=== PATIENT | female | born 1970 | race Caucasian/White ===

== ENCOUNTER 2018-12-08 07:43 | Emergency (ER) | payer BC ==
[~2018-12-08] VITALS: Ht 162.6 cm; Wt 68.5 kg
[~2018-12-08 07:43] MED LIST: LEVO0.1218 PO
[2018-12-08 07:48] VITALS: BP 114/71
--- NOTE | 2018-12-08 07:52 | NUR ---
PT AMBULATED TO BED 4
--- NOTE | 2018-12-08 07:58 | NUR ---
PATIENT PRESENTS TO ED NEED FEEDING TUBE REMOVABLE DUE TO EMERGENCY NEED TO TRAVEL [place] OF [place] TODAY, PT HAD BYPASS SURGERY ON 11/17 AND HAD FEEDING TUBE PLACED ON RLQ WITH STICHES. PT IS ABLE TO EAT, NOT USING THE FEEDING TUBE, SCHEDULED TO REMOVE NEXT WEEK, REFERRED FROM PCP. DENIES PAIN, VSS; PATIENT POSITIONED FOR COMFORT; HOB ELEVATED; BEDRAILS UP X2; BED DOWN. ER MD MADE AWARE OF PT STATUS.
--- NOTE | 2018-12-08 08:32 | NUR ---
Patient being evaluated by physician at bedside.
--- NOTE | 2018-12-08 09:50 | NUR ---
PEG TUBE REMOVED AT BEDSIDE BY DR. SCHROEDER. PT TOLERATED WELL.
[2018-12-08 09:55] VITALS: BP 114/71
--- NOTE | 2018-12-08 09:55 | NUR ---
Patient discharged with v/s stable. Written and verbal after care instructions given and explained. Patient verbalized understanding.
== END 2018-12-08 09:55 | disposition home or self-care (01) ==
LOC: MED 07:43
DX: Z43.1 Encounter for attention to gastrostomy (principal); Z98.84 Bariatric surgery status; E03.9 Hypothyroidism, unspecified; Z90.710 Acquired absence of both cervix and uterus; Z79.899 Other long term (current) drug therapy
CPT/HCPCS: 99281

== ENCOUNTER 2022-04-09 13:50 | Emergency (ER) | payer BC, MEDICAID ==
[~2022-04-09] VITALS: Ht 165.1 cm; Wt 65.3 kg
[~2022-04-09 13:50] MED LIST changes: -LEVO0.1218 PO; +LEVO0.1219 PO
[2022-04-09 14:15] VITALS: BP 100/66
--- NOTE | 2022-04-09 14:27 | NUR ---
BIB SELF C/O 10 LOWER BACK PAIN X 1 WEEK. DENIES DYSURIA. SEEN AT [facility] 6 DAYS AGO SAME S/S. PMH: CHRONIC BACK PAIN , HYSTERECTOMY, GASTRIC SLEEVE SURGERY
[2022-04-09 14:59] VITALS: BP 100/66
--- NOTE | 2022-04-09 14:59 | NUR ---
PATIENT LEFT WITHOUT BEING SEEN BY VIKAS FLORES. NO FURTHER CARE PROVIDED FOR PATIENT.
== END 2022-04-09 14:55 | disposition left against medical advice (07) ==
LOC: MED 13:50
DX: M54.50 Low back pain, unspecified (principal); Z53.21 Procedure and treatment not carried out due to patient leaving prior to being seen by health care provider
CPT/HCPCS: 81002; 81025; 99282

== ENCOUNTER 2022-04-29 00:35 | Emergency (ER) | payer MEDICAID ==
[~2022-04-29] VITALS: Ht 165.1 cm; Wt 65.8 kg
[2022-04-29 00:49] VITALS: BP 112/70
--- NOTE | 2022-04-29 00:55 | NUR ---
PT WHEELCHAIR TO ED 2, PT PLACED IN [employer], PT C/O CP THAT RADIATES TO BACK, CP X FEW HOURS. PT HAS HX- CHRONIC BACK PAIN.
--- NOTE | 2022-04-29 00:59 | NUR ---
PATIENT W/C TO BED 2
[2022-04-29] MEDS ORDERED: ASPIRIN 325 MG TAB PO ONE (01:05)
[2022-04-29 01:28] LABS: BASOPHILS % (AUTO) 0.5 % (0.0-2.0); EOSINOPHILS % (AUTO) 0.8 % (0.0-4.0); HEMATOCRIT 35.7 % (36-48); HEMOGLOBIN 11.8 g/dL (12.0-16.0); LYMPHOCYTES # (AUTO) 0.9 K/uL (2.5-16.5); MEAN CORPUSCULAR HEMOGLOBIN 29 pg (27-31); MEAN CORPUSCULAR HGB CONC 33 g/dL (33-37); MEAN CORPUSCULAR VOLUME 88.8 fL (80-94); MONOCYTES # (AUTO) 0.4 K/uL (0.8-1.0); MONOCYTES % (AUTO) 7.7 % (1.7-9.3); NEUTROPHILS # (AUTO) 3.6 K/uL (1.8-7.7); PLATELET COUNT (AUTO) 198 K/uL (140-450); RED BLOOD CELL COUNT(AUTO) 4.02 MIL/uL (4.20-5.40); RED CELL DISTRIBUTION WIDTH 15.9 % (11.6-13.7)
--- NOTE | 2022-04-29 01:31 | NUR ---
PATIENT REFUSED ASA. STATED "I CANT TAKE THAT. I CANT TAKE ASA, TYLENOL OR IBUPROFEN DUE TO MY SLEEVE. AT [facility] THEY USUALLY GIVE ME NORCO." MADE AWARE. NO NEW ORDERS AT THIS TIME.
[2022-04-29 02:05] LABS: ALBUMIN 3.3 g/dL (3.4-5.0); ANION GAP 10.6 (8-16); ASPARTATE AMINOTRANSFERASE 20 U/L (15-37); CARBON DIOXIDE 28.2 mmol/L (21-32); CHLORIDE 107 mmol/L (98-107); GLUCOSE 102 mg/dL (74-106); POTASSIUM 3.8 mmol/L (3.5-5.1); SODIUM SERUM 142 mmol/L (136-145); TOTAL BILIRUBIN 0.5 mg/dL (0.0-1.0); UREA NITROGEN, BLOOD 17 mg/dL (7-18)
[2022-04-29] MEDS ORDERED: diazePAM 5 MG TAB PO ONE (02:30)
[2022-04-29] MEDS ORDERED: KETOROLAC 30 MG/ML VIAL IVP ONE (02:30)
[2022-04-29] MEDS ORDERED: HYDROcodone/APAP 5/325 MG 1 TAB TAB PO ONE (02:30)
[2022-04-29] MEDS ORDERED: DIAZ5TAB6 PO (02:54)
[2022-04-29] MEDS ORDERED: LID5T TP (02:54)
[2022-04-29] MEDS ORDERED: NAPR-54 PO (02:54)
[2022-04-29] MEDS ORDERED: NALO4SPR NS (02:55)
[2022-04-29 03:08] VITALS: BP 108/74
--- NOTE | 2022-04-29 03:08 | NUR ---
Patient discharged with v/s stable. Written and verbal after care instructions given and explained. Patient alert, oriented and verbalized understanding of instructions. Ambulatory with steady gait. All questions addressed prior to discharge. ID band removed. Patient advised to follow up with PMD. Rx of narcan, valium, naproxen, and lidocaine given. Patient educated on indication of medication including possible reaction and side effects. Opportunity to ask questions provided and answered.
[2022-04-30 10:04] LABS: CREATININE 0.6 mg/dL (0.6-1.3); GFR ARICAN-AMERICAN 135 mL/min (>90)
== END 2022-04-29 03:08 | disposition home or self-care (01) ==
LOC: MED 00:35
DX: M54.9 Dorsalgia, unspecified (principal); R07.9 Chest pain, unspecified; E03.9 Hypothyroidism, unspecified; Z79.899 Other long term (current) drug therapy; Z98.84 Bariatric surgery status
CPT/HCPCS: 36415; 71045; 80053; 81025; 84484; 85025; 93005; 96374; 99285; J1885; Q0092